=== PATIENT | female | born 1980 | race African-American/Black ===

== ENCOUNTER 2019-04-22 23:31 | Emergency (ER) | payer SELFPAY ==
--- NOTE | 2019-04-23 00:29 | ER Document Report ---
ED Medical Screen (RME) - General Chief Complaint: Pelvic Pain Stated Complaint: PELVIC PAIN Time Seen by Provider: 04/23/19 00:26 Notes: Patient is a 38-year-old female presents to the emergency department for right pelvic pain. States his pain has been intermittent for the last couple weeks. States is been constant for the last 24 hours and intense which is why she presents to the emergency room. Patient also complaining of some generalized malodorous vaginal discharge. Patient's denying any vaginal bleeding or dysuria. ABDOMEN: Soft, non-tender. Non-distended. Bowel sounds present in all 4 quadrants. Right pelvic pain noted. I have greeted and performed a rapid initial assessment of this patient. A comprehensive ED assessment and evaluation of the patient, analysis of test results and completion of the medical decision making process will be conducted by additional ED providers. TRAVEL OUTSIDE OF THE [place] IN LAST 30 DAYS: No Physical Exam - Vital signs Vitals: Temp Pulse Resp BP Pulse Ox 98.4 F 71 15 124/63 99 04/22/19 23:36 04/22/19 23:36 04/22/19 23:36 04/22/19 23:36 04/22/19 23:36 Course - Vital Signs Vital signs: Temp Pulse Resp BP Pulse Ox 98.4 F 71 15 124/63 99 04/22/19 23:36 04/22/19 23:36 04/22/19 23:36 04/22/19 23:36 04/22/19 23:36
--- NOTE | 2019-04-23 01:56 | RADIOLOGY REPORT (SQ) ---
EXAM DESCRIPTION: US TRANSVAGINAL COMPLETED DATE/TME: 04/23/2019 00:27 CLINICAL HISTORY: 38 years Female right pelvic pain COMPARISON: None. TECHNIQUE: Transvaginal duplex imaging performed to evaluate the pelvis. FINDINGS: The uterus measures 8 x 4.1 cm. Small amount of free fluid is present in the pelvis. The cervix is closed and measures 2.7 cm. Endometrium 1 cm. Fluid in the right adnexa. The right ovary is normal in size with normal blood flow. It measures 1.6 x 1.5 x 3.2 cm. Left ovary measures 2.4 x 4 x 2.7 cm. There is a hemorrhagic cyst which measures 2.1 x 2.1 cm. This is almost certainly benign and no follow-up is recommended. Normal blood flow to the left ovary. IMPRESSION: Small amount of fluid in the pelvis Hemorrhagic left ovarian cyst. This is almost certainly benign and no follow-up is recommended
[2019-04-23 02:36] LABS: ABSOLUTE EOSINOPHILS # (AUTO) 0.2 10^3/uL (0.0-0.6); ABSOLUTE LYMPHOCYTES (AUTO) 2.9 10^3/uL (0.5-4.7); TOTAL CELLS COUNTED % (AUTO) 100 %
[2019-04-23 02:40] LABS: ALANINE AMINOTRANSFERASE 17 U/L (9-52); ALKALINE PHOSPHATASE 51 U/L (38-126); ANION GAP 12 (5-19); ASPARTATE AMINO TRANSFERASE 13 U/L (14-36); BILIRUBIN,DIRECT 0.2 mg/dL (0.0-0.4); BILIRUBIN,TOTAL 0.5 mg/dL (0.2-1.3); BLOOD UREA NITROGEN 16 mg/dL (7-20); CALCIUM 9.7 mg/dL (8.4-10.2); CARBON DIOXIDE 27 mmol/L (22-30); CHLORIDE 103 mmol/L (98-107); GLUCOSE 88 mg/dL (75-110); SODIUM 141.5 mmol/L (137-145); TOTAL PROTEIN 7.4 g/dL (6.3-8.2)
[2019-04-23 02:41] LABS: APPEARANCE,URINE SLIGHTLY-CLOUDY; BILIRUBIN,URINE NEGATIVE (NEGATIVE); COLOR,URINE YELLOW; GLUCOSE, URINE NEGATIVE (NEGATIVE); KETONES,URINE TRACE mg/dL (NEGATIVE); LEUKOCYTE ESTERASE,URINE NEGATIVE (NEGATIVE); NITRITE,URINE NEGATIVE (NEGATIVE); PROTEIN,URINE NEGATIVE (NEGATIVE); URINE SPECIFIC GRAVITY 1.019; UROBILINOGEN,URINE NEGATIVE mg/dL (<2.0)
[2019-04-23 02:43] LABS: ABSOLUTE MONOCYTES (AUTO) 0.7 10^3/uL (0.1-1.4); ABSOLUTE NEUT (AUTO) 3.5 10^3/uL (1.7-8.2); BASOPHILS % (AUTO) 0.3 % (0-2); EOSINOPHILS % (AUTO) 2.6 % (0-6); HEMATOCRIT 41.4 % (36.0-47.0); HEMOGLOBIN 13.6 g/dL (12.0-15.5); LYMPHOCYTES % (AUTO) 39.5 % (13-45); MEAN CORPUSCULAR HGB CONC 32.8 g/dL (32.0-36.0); MEAN CORPUSCULAR VOLUME 82 fl (80-97); MONOCYTES % (AUTO) 9.9 % (3-13); PLATELET COUNT 375 10^3/uL (150-450); RED BLOOD COUNT 5.03 10^6/uL (3.72-5.28); RED CELL DISTRIBUTION WIDTH 14.5 % (11.5-14.0); SEGMENTED NEUTROPHILS % (AUTO) 47.7 % (42-78); WHITE BLOOD COUNT 7.4 10^3/uL (4.0-10.5)
[2019-04-23] MEDS ORDERED: IBUPROFEN 800 MG TABLET PO ONE (03:18)
--- NOTE | 2019-04-23 03:18 | ER Document Report ---
ED General - General Chief Complaint: Pelvic Pain Stated Complaint: PELVIC PAIN Time Seen by Provider: 04/23/19 00:26 Notes: Patient is a 38-year-old female presents to the emergency department for right pelvic pain. States his pain has been intermittent for the last couple weeks. States has been constant for the last 24 hours and intense which is why she presents to the emergency room. Patient also complaining of some generalized malodorous vaginal discharge. Patient's denying any vaginal bleeding or dysuria. TRAVEL OUTSIDE OF THE [place] IN LAST 30 DAYS: No - Related Data Allergies/Adverse Reactions: No Known Allergies Allergy (Unverified 04/23/19 03:48) Past Medical History - General Information source: Patient - Social History Smoking Status: Unknown if Ever Smoked Family History: Reviewed & Not Pertinent Review of Systems - Review of Systems Constitutional: denies: Fever EENT: No symptoms reported Cardiovascular: No symptoms reported Respiratory: No symptoms reported Gastrointestinal: See HPI Genitourinary: See HPI Female Genitourinary: See HPI Musculoskeletal: No symptoms reported Skin: No symptoms reported Hematologic/Lymphatic: No symptoms reported Neurological/Psychological: No symptoms reported Physical Exam - Vital signs Vitals: Temp Pulse Resp BP Pulse Ox 98.4 F 71 15 124/63 99 04/22/19 23:36 04/22/19 23:36 04/22/19 23:36 04/22/19 23:36 04/22/19 23:36 - Notes Notes: GENERAL: Alert, interacts well. No acute distress. HEAD: Normocephalic, atraumatic. EYES: Pupils equal, round, and reactive to light. Extraocular movements intact. ENT: Oral mucosa moist, tongue midline. NECK: Full range of motion. Supple. Trachea midline. LUNGS: Clear to auscultation bilaterally, no wheezes, rales, or rhonchi. No respiratory distress. HEART: Regular rate and rhythm. No murmur ABDOMEN: Soft, Non-distended. Bowel sounds present in all 4 quadrants, no McBurney's point tenderness, no Stubbs sign noted. Generalized right pelvic pain noted. EXTREMITIES: Moves all 4 extremities spontaneously. No edema, normal radial and dorsalis pedis pulses bilaterally. No cyanosis. BACK: no cervical, thoracic, lumbar midline tenderness. No saddle anesthesia, normal distal neurovascular exam. No CVA tenderness noted bilaterally NEUROLOGICAL: Alert and oriented x3. Normal speech. cranial nerves II through XII grossly intact PSYCH: Normal affect, normal mood. SKIN: Warm, dry, normal turgor. No rashes or lesions noted. Pelvic: Ailin Smith RN white malodorous discharge noted in the cul-de-sac, no cervical motion tenderness noted no adnexal tenderness noted bilaterally. No exterior lesions. Course - Re-evaluation Re-evalutation: 04/23/19 04:54 Laboratory 04/23/19 04/23/19 04/23/19 01:57 01:57 01:59 WBC 7.4 RBC 5.03 Hgb 13.6 Hct 41.4 MCV 82 MCH 27.0 MCHC 32.8 RDW 14.5 H Plt Count 375 Seg Neutrophils % 47.7 Lymphocytes % 39.5 Monocytes % 9.9 Eosinophils % 2.6 Basophils % 0.3 Absolute Neutrophils 3.5 Absolute Lymphocytes 2.9 Absolute Monocytes 0.7 Absolute Eosinophils 0.2 Absolute Basophils 0.0 Sodium 141.5 Potassium 4.0 Chloride 103 Carbon Dioxide 27 Anion Gap 12 BUN 16 Creatinine 0.84 Est GFR ( Amer) > 60 Est GFR (Non-Af Amer) > 60 Glucose 88 Calcium 9.7 Total Bilirubin 0.5 Direct Bilirubin 0.2 Neonat Total Bilirubin Not Reportable Neonat Direct Bilirubin Not Reportable Neonat Indirect Bili Not Reportable AST 13 L ALT 17 Alkaline Phosphatase 51 Total Protein 7.4 Albumin 4.0 Urine Color YELLOW Urine Appearance SLIGHTLY-CLOUDY Urine pH 5.0 Ur Specific [place] 1.019 Urine Protein NEGATIVE Urine Glucose (UA) NEGATIVE Urine Ketones TRACE H Urine Blood NEGATIVE Urine Nitrite NEGATIVE Urine Bilirubin NEGATIVE Urine Urobilinogen NEGATIVE Ur Leukocyte Esterase NEGATIVE Urine WBC (Auto) 3 Urine RBC (Auto) 0 Urine Bacteria (Auto) TRACE Squamous Epi Cells Auto 1 Urine Mucus (Auto) RARE Urine Ascorbic Acid NEGATIVE Urine HCG, Qual NEGATIVE Trichomonas (Wet Prep) Vaginal WBC Vaginal RBC Vaginal Yeast 04/23/19 03:05 WBC RBC Hgb Hct MCV MCH MCHC RDW Plt Count Seg Neutrophils % Lymphocytes % Monocytes % Eosinophils % Basophils % Absolute Neutrophils Absolute Lymphocytes Absolute Monocytes Absolute Eosinophils Absolute Basophils Sodium Potassium Chloride Carbon Dioxide Anion Gap BUN Creatinine Est GFR ( Amer) Est GFR (Non-Af Amer) Glucose Calcium Total Bilirubin Direct Bilirubin Neonat Total Bilirubin Neonat Direct Bilirubin Neonat Indirect Bili AST ALT Alkaline Phosphatase Total Protein Albumin Urine Color Urine Appearance Urine pH Ur Specific [place] Urine Protein Urine Glucose (UA) Urine Ketones Urine Blood Urine Nitrite Urine Bilirubin Urine Urobilinogen Ur Leukocyte Esterase Urine WBC (Auto) Urine RBC (Auto) Urine Bacteria (Auto) Squamous Epi Cells Auto Urine Mucus (Auto) Urine Ascorbic Acid Urine HCG, Qual Trichomonas (Wet Prep) NO TRICHOMONAS SEEN Vaginal WBC FEW WBCS SEEN Vaginal RBC NO RBCS SEEN Vaginal Yeast NO YEAST SEEN Transvaginal US 04/23/19 00:27 IMPRESSION: Small amount of fluid in the pelvis Hemorrhagic left ovarian cyst. This is almost certainly benign and no follow-up is recommended Patient's pelvic exam reveals no cervical motion tenderness, no adnexal tenderness bilaterally. No signs of PID. Wet mount reveals no trichomonas, no bacterial vaginosis, no yeast. Patient was prophylactically treated for gonorrhea and chlamydia in the emergency department. Otherwise labs are unremarkable. Patient stable for discharge. - Vital Signs Vital signs: Temp Pulse Resp BP Pulse Ox 98.3 F 68 18 122/60 99 04/23/19 04:00 04/23/19 04:00 04/23/19 04:00 04/23/19 04:00 04/23/19 04:00 - Laboratory Result Diagrams: 04/23/19 01:57 04/23/19 01:57 Laboratory results interpreted by me: 04/23/19 04/23/19 04/23/19 01:57 01:57 01:59 RDW 14.5 H AST 13 L Urine Ketones TRACE H Discharge - Discharge Clinical Impression: Vaginal discharge, Pelvic pain Condition: Stable Disposition: HOME, SELF-CARE Instructions: Pelvic Pain ([facility]), Cephalosporins ([facility]), Azithromycin ([facility]), Gonorrhea ([facility]), Chlamydia ([facility]) Additional Instructions: As we discussed you have been seen and treated in the emergency department for your pelvic pain and vaginal discharge. Your initial testing for trichomonas, bacterial vaginosis, yeast all came back negative. As we discussed you have been prophylactically treated for gonorrhea and chlamydia as this test do not come back for hours. Please make sure you call [phone] for your culture results. Please follow-up with a primary care provider in the next 24 to 48 hours and return to the emergency room for any other concerns Forms: Return to Work Referrals: [facility] [Provider Group] - Follow up as needed [facility] [Provider Group] - Follow up as needed
[2019-04-23] MEDS ORDERED: AZITHROMYCIN 250 MG TABLET PO ONE (03:19)
[2019-04-23] MEDS ORDERED: CEFTRIAXONE INJ 250 MG VIAL IM ONE (03:19)
[2019-04-23 03:26] LABS: RBCS (WET MOUNT) NO RBCS SEEN; T.VAGINALIS (WET MOUNT) NO TRICHOMONAS SEEN; WBCS (WET MOUNT) FEW WBCS SEEN; YEAST (WET MOUNT) NO YEAST SEEN
[2019-04-23] MEDS ORDERED: LIDOCAINE 1% INJ (10 MG/ML) 10 ML MDV ONE (03:32)
[2019-04-23 04:05] VITALS: BP 122/60
[2019-04-23 04:51] LABS: CHLAM PCR NOT DETECTED (NOT DETECT); GON PCR NOT DETECTED (NOT DETECT)
== END 2019-04-23 04:58 | disposition home or self-care (01) ==
LOC: ER 23:31
DX: R10.2 Pelvic and perineal pain (principal); N89.8 Other specified noninflammatory disorders of vagina
CPT/HCPCS: 99284; 96372; 36415; 87086; 87210; 85025; 81025; 80053; 81001; 87491; 87591; 76830; 93976; J0696